=== PATIENT | female | born 1970 | race Caucasian/White ===

== ENCOUNTER 2016-07-21 10:16 | Emergency (ER) | payer MEDICAID ==
[~2016-07-21 10:16] MED LIST: ANUSOL HC25 MG/SUP1 PR; BACITRAYCIN PLU28 GM TP; FLAGYL500 M1 PO; MULTI VITAMIN1 EAC2 PO; MULTIVITAMIN1 TAB PO; NORCO 5-325 TA1 EACH PO; PEN-VEE K500 MG PO; PERCOCET 5/3251 TAB PO; PRENATAL1 TAB; TRAMADOL HCL50 MG PO
[2016-07-21 11:21] LABS: URINE BILIRUBIN NEGATIVE (NEG); URINE BLOOD SMALL (NEG); URINE GLUCOSE (UA) NEGATIVE (NEG); URINE KETONE NEGATIVE (NEG); URINE LEUKOCYTE ESTERASE NEGATIVE (NEG); URINE NITRITE NEGATIVE (NEG); URINE PH 6.5 (5.0-8.0); URINE PROTEIN NEGATIVE (NEG); URINE SPECIFIC GRAVITY 1.005 (1.003-1.030)
[2016-07-21 11:22] LABS: URINE APPEARANCE CLEAR; URINE COLOR PALE YELLOW
[2016-07-21 11:31] LABS: URINE EPITHELIAL CELLS 0-1 /[HPF] (0-10); URINE RBC 0-2 /[HPF] (0-5); URINE WBC 0 /[HPF] (0-5)
[2016-07-21] MEDS ORDERED: NORCO 5-325 TA1 EACH PO (12:31)
[2016-07-21] MEDS ORDERED: PREDNISONE20 M1 PO (12:31)
== END 2016-07-21 12:45 ==
LOC: EDMED 10:16
PROVIDERS: Nurse Practitioner Family
DX: M54.5 Low back pain (principal); R10.2 Pelvic and perineal pain; Z88.5 Allergy status to narcotic agent; Z88.7 Allergy status to serum and vaccine
CPT/HCPCS: J1885; J2270

== ENCOUNTER 2016-09-13 11:07 | Emergency (ER) | payer MEDICAID ==
[~2016-09-13 11:07] MED LIST changes: +PREDNISONE20 M1 PO
[2016-09-13] MEDS ORDERED: CYCLOBENZAPRINE5 M1 PO (12:32)
== END 2016-09-13 12:45 ==
LOC: EDMED 11:07
DX: G43.909 Migraine, unspecified, not intractable, without status migrainosus (principal); M54.2 Cervicalgia
CPT/HCPCS: J2270